=== PATIENT | female | born 1965 | race Caucasian/White ===

== ENCOUNTER → 2016-07-26 | Outpatient (CLI) | payer BC, OTHER ==
--- NOTE | 2016-07-26 12:47 | REP ---
Clinical: Pain. Technique: Internal rotation, external rotation, and Y view of the right shoulder. Findings: Cortical irregularities and small periarticular calcification involving the acromioclavicular joint is appreciated. The humeral head appears normal. The glenoid rim demonstrates subtle increased sclerosis and subchondral cystic changes. There is no evidence for acute fracture or dislocation. 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 Signed by Marty Mckoy MD 07/26/2016 12:39 P
== END ==
LOC: M WUC 12:25
PROVIDERS: ATTEND Family Medicine
DX: M19.011 Primary osteoarthritis, right shoulder (principal)

== ENCOUNTER 2017-01-03 21:41 | Emergency (ER) | payer BC, OTHER ==
[~2017-01-03] VITALS: Ht 172.7 cm; Wt 112.3 kg
[2017-01-03] MEDS ORDERED: ASPIRIN 81 MG CHEW TABLET PO ONE (22:30)
[2017-01-03 23:09] LABS: VENOUS O2 SATURATION 92.7 % (60.0-80.0); VENOUS PARTIAL PRESSURE O2 67.2 mmHg (30.0-50.0); VENOUS STANDARD HCO3 24.4 MEQ/L; VENOUS TOTAL CO2 27.2 MEQ/L (24.0-28.0)
[2017-01-03 23:18] LABS: BASO # 0.1 K/mm3 (0.0-0.2); BASO % 0.9 % (0.0-1.0); EOS # 0.3 K/mm3 (0.0-0.50); EOS % 3.5 % (0.0-3.0); LARGE UNSTAINED CELL # 0.2 K/mm3 (0.0-0.4); LARGE UNSTAINED CELL % 2.2 % (0.0-4.0); LYMPH % 46.4 % (24.0-44.0); MEAN CORPUSCULAR HEMOGLOBIN 29.7 pg (27.0-33.0); MEAN CORPUSCULAR HGB CONC 33.3 g/dl (32.0-36.5); MEAN CORPUSCULAR VOLUME 89.3 fl (80.0-96.0); MONO # 0.5 K/mm3 (0.0-0.8); MONO % 5.8 % (0.0-5.0); NEUTROPHILS # 3.4 K/mm3 (1.8-7.7); NEUTROPHILS % 41.2 % (36.0-66.0); PLATELET COUNT, AUTOMATED 290 k/mm3 (150-450); RED CELL DISTRIBUTION WIDTH 13.2 % (11.5-14.5); WHITE BLOOD COUNT 8.2 K/mm3 (4.0-10.0)
[2017-01-04 00:20] LABS: ALKALINE PHOSPHATASE 60 U/L (45-117); ALT/SGPT 38 U/L (12-78); ANION GAP 8 MEQ/L (8-16); AST/SGOT 16 U/L (15-37); BILIRUBIN,DIRECT < 0.1 MG/DL (0.0-0.2); BILIRUBIN,TOTAL 0.2 MG/DL (0.2-1.0); BLOOD UREA NITROGEN 18 MG/DL (7-18); CARBON DIOXIDE LEVEL 28 MEQ/L (21-32); CHLORIDE LEVEL 106 MEQ/L (98-107); GLOMERULAR FILTRATION RATE > 60.0 (>51); GLUCOSE, FASTING 99 MG/DL (70-105); SODIUM LEVEL 142 MEQ/L (136-145)
[2017-01-04 00:21] LABS: ALBUMIN 3.7 GM/DL (3.2-5.2); ALBUMIN/GLOBULIN RATIO 1.12 (1.00-1.93)
[2017-01-04 02:05] VITALS: BP 124/80
--- NOTE | 2017-01-04 05:57 | ECGEPIP ---
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
--- NOTE | 2017-01-04 11:12 | REP ---
Clinical: Chest pain . Comparison: 04/13/2016 . Technique: PA and lateral. Findings: The mediastinum and cardiac silhouette are normal. The lung fatima are clear and without acute consolidation, effusion, or pneumothorax. The skeletal structures are intact and normal. Impression: 1. No acute cardiopulmonary process. Signed by Marty Mckoy MD 01/04/2017 07:29 A
== END 2017-01-04 02:06 | disposition home or self-care (01) ==
LOC: M ED 21:41
DX: R07.89 Other chest pain (principal); R00.0 Tachycardia, unspecified

== ENCOUNTER → 2017-02-15 | Outpatient (CLI) | payer BC ==
--- NOTE | 2017-02-15 08:59 | REPMRS ---
Patient History The patient states she had a clinical breast exam in 02/12 Patient is postmenopausal. No known family history of cancer. Took hormonal contraceptives for 4 years. Took estrogen for 2 months. Digital Woman Screen Mammo: February 15, 2017 - Exam #: [id number] Bilateral CC and MLO view(s) were taken. Technologist: Mila Mcgregor, Technologist Prior study comparison: February 10, 2016, digital woman screen mammo performed at [facility]. January 14, 2015, digital woman screen mammo performed at [facility] to [facility]. FINDINGS: There are scattered fibroglandular densities. There has been no change in the appearance of the mammogram from the prior studies. There is a mild amount of residual fibroglandular tissue which is fairly symmetric. There is no interval development of dominant mass, architectural distortion, or clustered microcalcification suggestive of malignancy. ASSESSMENT: BI-RADS/ACR category 1 mammogram. Negative. Recommendation Routine screening mammogram in 1 year (for women over age 40). This mammogram was interpreted with the aid of an FDA-approved computer-aided dectection system. Electronically Signed By: Kayode Shaw MD 02/15/17 0832
== END ==
LOC: M WHC 08:12
PROVIDERS: ATTEND Nurse Practitioner Women's Health
DX: Z12.31 Encounter for screening mammogram for malignant neoplasm of breast (principal)

== ENCOUNTER → 2017-03-29 | Outpatient (CLI) | payer OTHER, BC ==
[2017-03-29 13:15] LABS: ALBUMIN 3.8 GM/DL (3.2-5.2); ALBUMIN/GLOBULIN RATIO 1.15 (1.00-1.93); ALKALINE PHOSPHATASE 51 U/L (45-117); ALT/SGPT 40 U/L (12-78); ANION GAP 7 MEQ/L (8-16); AST/SGOT 20 U/L (7-37); BILIRUBIN,TOTAL 0.4 MG/DL (0.2-1.0); BLOOD UREA NITROGEN 13 MG/DL (7-18); CALCIUM LEVEL 9.2 MG/DL (8.5-10.1); CARBON DIOXIDE LEVEL 28 MEQ/L (21-32); CHLORIDE LEVEL 108 MEQ/L (98-107); CHOLESTEROL LEVEL 202 MG/DL (<200); CREATININE FOR GFR 0.71 MG/DL (0.55-1.02); GLOMERULAR FILTRATION RATE > 60.0 (>51); GLUCOSE, FASTING 93 MG/DL (70-105); POTASSIUM SERUM 4.5 MEQ/L (3.5-5.1); SODIUM LEVEL 143 MEQ/L (136-145); TOTAL PROTEIN 7.1 GM/DL (6.4-8.2); TRIGLYCERIDES LEVEL 159 MG/DL (<150)
== END ==
LOC: M WUC 10:10
PROVIDERS: ATTEND Family Medicine
DX: E66.01 Morbid (severe) obesity due to excess calories (principal)

== ENCOUNTER 2017-05-24 10:32 | Day surgery (SDC) | payer BC, OTHER ==
[2017-05-24] MEDS: NS 1,000 ML IV (11:30)
[2017-05-24] MEDS ORDERED: LIDOCAINE 2% INJ 100 MG/5 ML SDV (FOR ANES.) As Ordered (12:29)
[2017-05-24] MEDS ORDERED: PROPOFOL 200 MG/20 ML VIAL As Ordered ×2 (12:29→12:40)
== END 2017-05-24 13:21 | disposition home or self-care (01) ==
LOC: M OPP 10:32
DX: Z12.11 Encounter for screening for malignant neoplasm of colon (principal); D12.3 Benign neoplasm of transverse colon; G47.33 Obstructive sleep apnea (adult) (pediatric); M12.9 Arthropathy, unspecified; Z86.79 Personal history of other diseases of the circulatory system; Z99.89 Dependence on other enabling machines and devices; Z91.89 Other specified personal risk factors, not elsewhere classified; Z90.710 Acquired absence of both cervix and uterus; Z85.51 Personal history of malignant neoplasm of bladder
CPT/HCPCS: 45385

== ENCOUNTER → 2018-04-11 | Outpatient (CLI) | payer BC | LOC: M WHC 14:43 | DX: Z12.31 Encounter for screening mammogram for malignant neoplasm of breast (principal); Z92.0 Personal history of contraception; Z92.23 Personal history of estrogen therapy | CPT/HCPCS: 77067 ==

== ENCOUNTER → 2019-04-07 | Outpatient (REF) | payer OTHER ==
[~2019-04-07] MED LIST: FIBE1CHW3 PO; OSTETAB4 PO
[2019-04-07 13:40] LABS: ALT/SGPT 35 U/L (12-78); BILIRUBIN,TOTAL 0.6 MG/DL (0.2-1.0); BLOOD UREA NITROGEN 19 MG/DL (7-18); CALCIUM LEVEL 9.3 MG/DL (8.5-10.1); CARBON DIOXIDE LEVEL 30 MEQ/L (21-32); CHLORIDE LEVEL 106 MEQ/L (98-107); CHOLESTEROL LEVEL 250 MG/DL (<200); CHOLESTEROL RISK RATIO 3.048 (<5); CREATININE FOR GFR 0.67 MG/DL (0.55-1.30); GLOMERULAR FILTRATION RATE > 60.0 (>51); GLUCOSE, FASTING 86 MG/DL (70-100); HDL CHOLESTEROL 82 MG/DL (>40); LDL CHOLESTEROL 140 MG/DL (<100); NON-HDL-C 168 MG/DL; POTASSIUM SERUM 4.4 MEQ/L (3.5-5.1); SODIUM LEVEL 140 MEQ/L (136-145); TOTAL PROTEIN 7.2 GM/DL (6.4-8.2); TRIGLYCERIDES LEVEL 142 MG/DL (<150)
== END ==
LOC: M SFHCPLAZ 10:38
PROVIDERS: ATTEND Family Medicine
DX: Z13.220 Encounter for screening for lipoid disorders (principal); Z13.1 Encounter for screening for diabetes mellitus

== ENCOUNTER → 2019-04-14 | Outpatient (CLI) | payer BC ==
--- NOTE | 2019-04-14 12:11 | REPMRS ---
Patient History The patient states she had a clinical breast exam in March 2019.No known family history of cancer. Took hormonal contraceptives for 4 years. Took estrogen for 2 months. Patient has had a 5 pound weight loss since last mammogram. Digital Woman Screen Mammo: April 14, 2019 - Exam #: [id number] Bilateral CC and MLO view(s) were taken. Technologist: Chio Ramirez, Technologist Prior study comparison: April 11, 2018, bilateral digital woman screen mammo performed at [facility]. February 15, 2017, digital woman screen mammo performed at [facility]. February 10, 2016, digital woman screen mammo performed at [facility]. FINDINGS: There are scattered fibroglandular densities. There has been no change in the appearance of the mammogram from the prior studies. There is a mild amount of scattered fibroglandular density which is fairly symmetric. There is no interval development of dominant mass, architectural distortion, or grouped microcalcification suggestive of malignancy. 3-D tomosynthesis shows no additional findings. Assessment: BI-RADS/ACR category 1 mammogram. Negative Mammogram. Recommendation Routine screening mammogram of both breasts in 1 year (for women over age 40). This patient's Lifetime Breast Cancer Risk is estimated at 8.2 %. This mammogram was interpreted with the aid of an FDA-approved computer-aided dectection system. Electronically Signed By: Mike Camp MD 04/14/19 1141
== END ==
LOC: M WHC 09:28
PROVIDERS: ATTEND Nurse Practitioner Women's Health
DX: Z12.31 Encounter for screening mammogram for malignant neoplasm of breast (principal)

== ENCOUNTER 2019-05-21 12:09 | Inpatient (IN) | payer BC, OTHER ==
[~2019-05-21] VITALS: Ht 175.3 cm; Wt 108.8 kg
[2019-05-21 12:45] LABS: BASO # 0.1 10^3/uL (0.0-0.2); BASO % 0.5 % (0.0-1.0); EOS # 0.2 10^3/uL (0.0-0.5); EOS % 2.2 % (0.0-3.0); HEMOGLOBIN 15.8 g/dl (12.0-15.5); LYMPH % 42.9 % (24.0-44.0); MEAN CORPUSCULAR HEMOGLOBIN 29.3 pg (27.0-33.0); MEAN CORPUSCULAR HGB CONC 32.2 g/dl (32.0-36.5); MEAN CORPUSCULAR VOLUME 90.9 fl (80.0-96.0); MONO # 0.7 10^3/uL (0.0-0.8); MONO % 7.6 % (0.0-5.0); NEUTROPHILS # 4.4 10^3/uL (1.5-8.5); NEUTROPHILS % 46.4 % (36.0-66.0); PLATELET COUNT, AUTOMATED 315 10^3/uL (150-450); RED BLOOD COUNT 5.39 10^6/uL (4.00-5.40); WHITE BLOOD COUNT 9.4 10^3/uL (4.0-10.0)
[2019-05-21] MEDS ORDERED: ASPIRIN 81 MG CHEW TABLET PO ONE (12:45)
[2019-05-21] MEDS: METOPROLOL 5 MG/5 ML VIAL IV SCH ×3 (12:53→13:58)
[2019-05-21 13:15] LABS: BLOOD UREA NITROGEN 16 MG/DL (7-18); CALCIUM LEVEL 9.7 MG/DL (8.5-10.1); CARBON DIOXIDE LEVEL 26 MEQ/L (21-32); CHLORIDE LEVEL 104 MEQ/L (98-107); CK-MB VALUE MASS 3.3 NG/ML (<3.6); CPK CREATINE PHOSPHOKINASE 251 U/L (26-192); CREATININE FOR GFR 0.79 MG/DL (0.55-1.30); GLOMERULAR FILTRATION RATE > 60.0 (>51); GLUCOSE, FASTING 91 MG/DL (70-100); MB/CK RELATIVE INDEX 1.31 (< OR =4); POTASSIUM SERUM 4.6 MEQ/L (3.5-5.1); SODIUM LEVEL 139 MEQ/L (136-145); TROPONIN I < 0.02 NG/ML (< 0.10)
--- NOTE | 2019-05-21 13:51 | REP ---
Portable chest x-ray: Single view. History: Chest pain. Comparison study: January 03, 2017. Findings: Monitoring electrodes overlie the chest. The right hemidiaphragm is elevated. Heart is not enlarged. Pulmonary vasculature is not increased. Pleural angles are sharp. No bony abnormality is seen. Impression: Right hemidiaphragm is somewhat elevated as before. No acute disease. Electronically Signed by James Camp MD 05/21/2019 01:42 P
[2019-05-21 13:58] LABS: INR 0.94; PROTHROMBIN TIME 12.2 SECONDS (11.8-14.0)
[2019-05-21 13:59] LABS: PARTIAL THROMBOPLASTIN TIME 27.1 SECONDS (25.0-38.4)
[2019-05-21 14:02] LABS: ALBUMIN 4.3 GM/DL (3.2-5.2); ALT/SGPT 34 U/L (12-78); BILIRUBIN,DIRECT 0.1 MG/DL (0.0-0.2); BILIRUBIN,TOTAL 0.4 MG/DL (0.2-1.0); MAGNESIUM LEVEL 2.4 MG/DL (1.8-2.4); TOTAL PROTEIN 7.8 GM/DL (6.4-8.2)
[2019-05-21] MEDS ORDERED: ISOVUE-370 76% 100ML VIAL (Q9967) As Ordered ONE (14:05)
--- NOTE | 2019-05-21 14:57 | REP ---
CT of the chest with IV contrast, pulmonary artery CT angiography: There are no comparison studies. There are no emboli in the pulmonary trunk or central pulmonary arteries. There are no emboli in the pulmonary lobe or segment branches. There are no infiltrates or pleural effusions. There is dependent atelectasis. There are no nodules or masses. There is no mediastinal, hilar or axillary adenopathy. The thoracic aorta is unremarkable. Cardiac size is normal. There is no pericardial effusion. The visualized upper abdominal contents are unremarkable. Impression: There are no pulmonary emboli. Otherwise, negative CT study of the chest. Electronically Signed by Kayode Felipe MD 05/21/2019 02:48 P
[2019-05-21] MEDS ORDERED: DIGOXIN INJ 0.5 MG/2 ML AMP (J1160) IV STA (15:35)
[2019-05-21] MEDS ORDERED: NS 500 ML IV ONE (15:45)
[2019-05-21 16:05] LABS: CK-MB VALUE MASS 3.1 NG/ML (<3.6); CPK CREATINE PHOSPHOKINASE 222 U/L (26-192); TROPONIN I < 0.02 NG/ML (< 0.10)
[2019-05-21] MEDS ORDERED: [UNRECOGNIZED DRUG - OTHER] PO (16:08)
[2019-05-21] MEDS ORDERED: OSTETAB2 PO (16:08)
[2019-05-21] MEDS ORDERED: AMIODARONE HCL 150 MG in IV 1 EA IV STA (16:38)
[2019-05-21] MEDS ORDERED: ACETAMINOPHEN 325 MG TAB PO ONE (19:00)
--- NOTE | 2019-05-21 19:23 | HPEPDOC ---
General Date of Admission May 21, 2019 at 16:56 Date of Service: May 21, 2019 Chief Complaint The patient is a 53-year-old female admitted with a reason for visit of Atrial Fibrillation With Rvr. Source: Patient, RN/MD History of Present Illness 53 year old female with PMH of JOANIE on CPAP, SVT, Obesity 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 SHe felt herself falling then as sson as she hit her head she woke up on the floor. She reports that she would feel episodes of palpitation but then it would resolve spontaneously. No history of syncopal episode inteh past, no chest pain or cough. In the ED she was in Afib with RVR with rate of 150s. In view of her syncopal episode she had a CT angio of the chest which was negative for PE. pateint recievd 3 doses of IV metoprolol and 1 dose of IV digoxin without any control of the heart rate. Dr Claire was consulted and he reccomendaed 150 mg of amiodarone which was given. Hospitalist was consuted for admission. Home Medications Scheduled Glucosam/Clarence-Msm1/C/Saul/Bosw (Osteo Bi-Flex Caplet) 1 Each Tablet, 2 TAB PO DAILY, (Reported) [Plexus Bio Clense] , 2 CAP PO DAILY, (Reported) Allergies Coded Allergies: No Known Allergies (Unverified , 05/21/19) Past Medical History Medical History JOANIE on CPAP, SVT, Obesity Surgical History total hystrectomy Family History Significant Family History: Cancer (father), Heart disease (brother) Social History * Smoker: non-smoker Alcohol: rarely Drugs: denies A-FIB/CHADSVASC A-FIB History Current/History of A-Fib/PAF?: Yes Current PO Anticoag Therapy: No Review of Systems Constitutional: Reports: Other (passed out); Denies: Chills, Fever, Night Sweats Eyes: Denies: Pain, Vision change ENT: Denies: Head Aches, Ear Pain, Dysphagia Skin: Denies: Rash, Lesions, Breakdown Pulmonary: Denies: Dyspnea, Cough Cardiovascular: Reports: Palpitations, Lt Headedness Gastrointestinal: Denies: Nausea, Vomiting, Abdominal Pain, Diarrhea Genitourinary: Denies: Dysuria, Frequency, Incontinence, Retention Hematologic: Denies: Bruising, Bleeding Excessively Musculoskeletal: Denies: Neck Pain, Back Pain, Joint Pain, Muscle Pain, Spasms Neurological: Denies: Weakness, Numbness, Change in speech, Confusion Physical Examination General Exam: Positive: Alert, Cooperative, No Acute Distress Eye Exam: Positive: PERRLA, Conjunctiva & lids normal, EOMI; Negative: Sclera icteric ENT Exam: Positive: Atraumatic, Mucous membr. moist/pink, Pharynx Normal Neck Exam: Positive: Supple; Negative: JVD, thyromegaly Chest Exam: Positive: Clear to auscultation, Normal air movement Heart Exam: Positive: Tachycardic, Irregular Rhythm, Normal S1, Normal S2; Negative: Gallops, Murmurs, Rubs Telemetry: Positive: Atrial fibrillation Abdomen Exam: Positive: Normal bowel sounds, Soft; Negative: Tenderness, Hepatospenomegaly Extremity Exam: Positive: Normal pulses; Negative: Clubbing, Cyanosis, Edema Skin Exam: Positive: Nl turgor and temperature; Negative: Breakdown, Lesion Neuro Exam: Positive: Normal Gait, Normal Speech, Cranial Nerves 3-12 NL, Reflexes 2+ Vital Signs Vital Signs Date Time Temp Pulse Resp B/P (MAP) Pulse Ox O2 Delivery O2 Flow Rate FiO2 05/21/19 17:16 145 18 109/72 (84) 92 Room Air 05/21/19 12:09 97.4 Laboratory Data Labs 24H Laboratory Tests 2 05/21/19 12:26: Immature Granulocyte % (Auto) 0.4, Neutrophils (%) (Auto) 46.4, Lymphocytes (%) (Auto) 42.9, Monocytes (%) (Auto) 7.6H, Eosinophils (%) (Auto) 2.2, Basophils (%) (Auto) 0.5, Neutrophils # (Auto) 4.4, Lymphocytes # (Auto) 4.0, Monocytes # (Auto) 0.7, Eosinophils # (Auto) 0.2, Basophils # (Auto) 0.1, Nucleated Red Bl ood Cells % (auto) 0.0, Prothrombin Time 12.2, Prothromb Time International Ratio 0.94, Activated Partial Thromboplast Time 27.1, Anion Gap 9, Glomerular Filtration Rate > 60.0, Calcium Level 9.7, Magnesium Level 2.4, Total Bilirubin 0.4, Direct Bilirubin 0.1, Aspartate Amino Transf (AST/SGOT) 27, Alanine Aminotransferase (ALT/SGPT) 34, Alkaline Phosphatase 57, Total Creatine Kinase 251H, Creatine Kinase MB 3.3, Creatine Kinase MB Relative Index 1.31, Troponin I < 0.02, Total Protein 7.8, Albumin 4.3, Albumin/Globulin Ratio 1.23, Thyroid Stimulating Hormone (TSH) 1.670 05/21/19 12:42: POC Glucose (Misc Panel) 97, POC Sodium (Misc Panel) 140, POC Potassium (Misc Panel) 4.3, POC Chloride (Misc Panel) 102, POC Total CO2 (Misc Panel) 29.0H, POC Blood Urea Nitrogen (Misc Panel 17, POC Ionized Calcium (Misc Panel) 4.8, POC Creatinine (Misc Panel) 0.8, POC Hematocrit (Misc Panel) 47.0 05/21/19 15:27: Total Creatine Kinase 222H, Creatine Kinase MB 3.1, Creatine Kinase MB Relative Index 1.40, Troponin I < 0.02 CBC/BMP Laboratory Tests 05/21/19 12:26 Assessment/Plan 53 year old female with PMH of JOANIE on CPAP, SVT, Obesity 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 SHe felt herself falling then as sson as she hit her head she woke up on the floor. She reports that she would feel episodes of palpitation but then it would resolve spontaneously. No history of syncopal episode inteh past, no chest pain or cough. In the ED she was in Afib with RVR with rate of 150s. In view of her syncopal episode she had a CT angio of the chest which was negative for PE. pateint recievd 3 doses of IV metoprolol and 1 dose of IV digoxin without any control of the heart rate. Dr Claire was consulted and he reccomendaed 150 mg of amiodarone which was given. Hospitalist was consulted for admission. Afib with rvr new onset with syncopal episode. will give another dose of dizoxin at 8pm if heart rate remains uncontrolled after the amiodarone. will also start her on low dose metoprolol if BP permits. will need anticoagulation. consulted Dr Claire. Syncope possibly due to Afib with rvr will get echo. telemetry JOANIE may use own CPAP. Plan / VTE VTE Prophylaxis Ordered?: Yes BÁRBARA RENTERIA MD May 21, 2019 17:35
[2019-05-21 20:00] VITALS: BP 128/74
[2019-05-21] MEDS ORDERED: DIGOXIN INJ 0.5 MG/2 ML AMP (J1160) IV ONE (20:00)
--- NOTE | 2019-05-21 20:48 | REPVR ---
PROCEDURE INFORMATION: Exam: CT Head Without Contrast Exam date and time: 05/21/2019 7:15 PM Age: 53 years old Clinical indication: Injury or trauma; Fall; Initial encounter; Blunt trauma (contusions or hematomas) TECHNIQUE: Imaging protocol: Computed tomography of the head without contrast. Radiation optimization: All CT scans at this facility use at least one of these dose optimization techniques: automated exposure control; mA and/or kV adjustment per patient size (includes targeted exams where dose is matched to clinical indication); or iterative reconstruction. COMPARISON: No relevant prior studies available. FINDINGS: Brain: Normal. No hemorrhage. Unremarkable white matter. No mass effect. Ventricles: Normal. No ventriculomegaly. Bones/joints: Unremarkable. No acute fracture. Sinuses: Visualized sinuses are unremarkable. No fluid levels. Mastoid air cells: Visualized mastoid air cells are well aerated. Soft tissues: Unremarkable. IMPRESSION: No acute intracranial abnormality. Electronically signed by: Juan Person On 05/21/2019 20:48:39 PM
[2019-05-21 21:21] VITALS: BP 128/74
[2019-05-21] MEDS: METOPROLOL TART 12.5 MG PER 1/2 TAB PO SCH (21:34)
[2019-05-21] MEDS ORDERED: METOPROLOL TART 25 MG TABLET PO ONE (22:30)
[2019-05-22] VITALS: BP 113/65
[2019-05-22 04:00] VITALS: BP 127/83
[2019-05-22 05:32] LABS: BASO # 0.1 10^3/uL (0.0-0.2); BASO % 0.7 % (0.0-1.0); EOS # 0.3 10^3/uL (0.0-0.5); EOS % 3.1 % (0.0-3.0); HEMATOCRIT 44.4 % (36.0-47.0); HEMOGLOBIN 14.4 g/dl (12.0-15.5); LYMPH # 3.5 10^3/uL (1.5-5.0); LYMPH % 42.9 % (24.0-44.0); MEAN CORPUSCULAR HEMOGLOBIN 29.6 pg (27.0-33.0); MEAN CORPUSCULAR HGB CONC 32.4 g/dl (32.0-36.5); MEAN CORPUSCULAR VOLUME 91.2 fl (80.0-96.0); MONO # 0.6 10^3/uL (0.0-0.8); MONO % 6.8 % (0.0-5.0); NEUTROPHILS # 3.7 10^3/uL (1.5-8.5); NEUTROPHILS % 46.1 % (36.0-66.0); PLATELET COUNT, AUTOMATED 288 10^3/uL (150-450); RED BLOOD COUNT 4.87 10^6/uL (4.00-5.40); WHITE BLOOD COUNT 8.1 10^3/uL (4.0-10.0)
[2019-05-22 05:50] LABS: BLOOD UREA NITROGEN 16 MG/DL (7-18); CALCIUM LEVEL 8.5 MG/DL (8.5-10.1); CARBON DIOXIDE LEVEL 31 MEQ/L (21-32); CHLORIDE LEVEL 108 MEQ/L (98-107); CREATININE FOR GFR 0.81 MG/DL (0.55-1.30); GLOMERULAR FILTRATION RATE > 60.0 (>51); GLUCOSE, FASTING 87 MG/DL (70-100); POTASSIUM SERUM 4.1 MEQ/L (3.5-5.1); SODIUM LEVEL 143 MEQ/L (136-145)
[2019-05-22] MEDS: ENOXAPARIN 40 MG/0.4 ML SYRINGE (J1650) SC SCH (09:12)
[2019-05-22] MEDS: METOPROLOL TART 12.5 MG PER 1/2 TAB PO SCH ×2 (09:12→22:11)
[2019-05-22] MEDS ORDERED: SLF 3 ML SYR IV PRN (10:45)
--- NOTE | 2019-05-22 11:38 | IPNPDOC ---
Subjective Date Seen The patient was seen on 05/22/19. Subjective Chief Complaint/HPI No complaints today. Feels well. Objective Physical Examination General Exam: Positive: Alert, Cooperative, No Acute Distress Eye Exam: Positive: PERRLA, Conjunctiva & lids normal, EOMI ENT Exam: Positive: Atraumatic, Mucous membr. 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 SHe felt herself falling then as sson as she hit her head she woke up on the floor. She reports that she would feel episodes of palpitation but then it would resolve spontaneously. No history of syncopal episode inteh past, no chest pain or cough. In the ED she was in Afib with RVR with rate of 150s. In view of her syncopal episode she had a CT angio of the chest which was negative for PE. pateint recievd 3 doses of IV meto prolol and 1 dose of IV digoxin without any control of the heart rate. Dr Claire was consulted and he reccomendaed 150 mg of amiodarone which was given. Hospitalist was consulted for admission. Afib with rvr new onset with syncopal episode. converted to sinus last night around 11 pm will need anticoagulation. consulted Dr Claire. Syncope possibly due to Afib with rvr will get echo. telemetry JOANIE may use own CPAP. Plan/VTE VTE Prophylaxis Ordered?: Yes VS, I&O, 24H, Fishbone Vital Signs/I&O Vital Signs Date Time Temp Pulse Resp B/P (MAP) Pulse Ox O2 Delivery O2 Flow Rate FiO2 05/22/19 04:00 97.1 63 18 127/83 (98) 94 NIPPV (BIPAP/CPAP) I&O- Last 24 Hours up to 6 AM 05/22/19 05:59 Intake Total 600 ml Output Total 200 ml Balance 400 ml Laboratory Data 24H LABS Laboratory Tests 2 05/21/19 12:26: Immature Granulocyte % (Auto) 0.4, Neutrophils (%) (Auto) 46.4, Lymphocytes (%) (Auto) 42.9, Monocytes (%) (Auto) 7.6H, Eosinophils (%) (Auto) 2.2, Basophils (%) (Auto) 0.5, Neutrophils # (Auto) 4.4, Lymphocytes # (Auto) 4.0, Monocytes # (Auto) 0.7, Eosinophils # (Auto) 0.2, Basophils # (Auto) 0.1, Nucleated Red Blood Cells % (auto) 0.0, Prothrombin Time 12.2, Prothromb Time International Ratio 0.94, Activated Partial Thromboplast Time 27.1, Anion Gap 9, Glomerular Filtration Rate > 60.0, Calcium Level 9.7, Magnesium Level 2.4, Total Bilirubin 0.4, Direct Bilirubin 0.1, Aspartate Amino Transf (AST/SGOT) 27, Alanine Aminotransferase (ALT/SGPT) 34, Alkaline Phosphatase 57, Total Creatine Kinase 251H, Creatine Kinase MB 3.3, Creatine Kinase MB Relative Index 1.31, Troponin I < 0.02, Total Protein 7.8, Albumin 4.3, Albumin/Globulin Ratio 1.23, Thyroid Stimulating Hormone (TSH) 1.670 05/21/19 12:42: POC Glucose (Misc Panel) 97, POC Sodium (Misc Panel) 140, POC Potassium (Misc Panel) 4.3, POC Chloride (Misc Panel) 102, POC Total CO2 (Misc Panel) 29.0H, POC Blood Urea Nitrogen (Misc Panel 17, POC Ionized Calcium (Misc Panel) 4.8, POC Creatinine (Misc Panel) 0.8, POC Hematocrit (Misc Panel) 47.0 05/21/19 15:27: Total Creatine Kinase 222H, Creatine Kinase MB 3.1, Creatine Kinase MB Relative Index 1.40, Troponin I < 0.02 05/22/19 05:05: Immature Granulocyte % (Auto) 0.4, Neutrophils (%) (Auto) 46.1, Lymphocytes (%) (Auto) 42.9, Monocytes (%) (Auto) 6.8H, Eosinophils (%) (Auto) 3.1H, Basophils (%) (Auto) 0.7, Neutrophils # (Auto) 3.7, Lymphocytes # (Auto) 3.5, Monocytes # (Auto) 0.6, Eosinophils # (Auto) 0.3, Basophils # (Auto) 0.1, Nucleated Red Blood Cells % (auto) 0.0, Anion Gap 4L, Glomerular Filtration Rate > 60.0, Calcium Level 8.5 CBC/BMP Laboratory Tests 05/21/19 12:26 05/22/19 05:05 BÁRBARA RENTERIA MD May 22, 2019 11:38
[2019-05-22] MEDS: SLF 3 ML SYR IV SCH ×2 (14:00→22:11)
[2019-05-22 20:00] VITALS: BP 133/76
--- NOTE | 2019-05-22 20:16 | ECGEPIP ---
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
--- NOTE | 2019-05-22 20:20 | ECGEPIP ---
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
[2019-05-22] MEDS: ASPIRIN ENTERIC 325 MG TAB PO SCH (22:10)
[2019-05-23] VITALS: BP 123/78
--- NOTE | 2019-05-23 00:18 | ECHO ---
DATE OF PROCEDURE: 05/22/2019 DATE OF : 1965 AGE: 53 REFERRING PHYSICIAN: Dr. Keyana Arzola PATIENT LOCATION: Room 3226 REASON FOR THE STUDY: Syncope, atrial fibrillation. 2D MEASUREMENTS: IVS: 1.1 cm LV: 5.0 cm LVPW: 1.1 cm LA: 4.0 cm Aorta: 3.6 cm IVC: 1.8 cm DOPPLER MEASUREMENTS: Peak velocity across the aortic valve: 1.1 meters per second Mitral E: 0.36, Mitral A: 0.55 with a ratio of 0.7 2D COMMENTS: 1. Normal left ventricular size, wall thickness, and normal global left ventricular systolic function. The estimated left ventricular systolic ejection fraction is 60-65%. 2. Borderline enlarged left atrium at 4.0 cm. Normal right atrium and right ventricle. 3. The atrial septum appeared to be normal without evidence of defect or shunt. 4. Normal aortic root. 5. Trace nonsignificant and probably physiologic pericardial effusion noted, no evidence of cardiac tamponade. 6. Aortic valve, mitral valve, tricuspid valve, and pulmonic valve appeared to be normal. The proximal pulmonary artery branches also appeared to be normal. 7. The inferior vena cava was normal in size, central venous pressure is most likely normal. DOPPLER: No significant valvular abnormalities detected but trace pulmonic regurgitation. Abnormal relaxation pattern was noted across the mitral valve leaflets as well as the mitral valve annulus consistent with features of grade 1 left ventricular diastolic dysfunction. IMPRESSION: 1. Normal global left ventricular systolic function. There are some features of grade 1 left ventricular diastolic dysfunction manifested by abnormal relaxation. 2. Trace pulmonic regurgitation. 3. Trace probably physiology pericardial effusion noted. No evidence of cardiac tamponade. 4. No findings in this transthoracic echocardiogram that would explain her syncopal episode.
[2019-05-23 04:00] VITALS: BP 122/79
[2019-05-23] MEDS: SLF 3 ML SYR IV SCH (04:57)
[2019-05-23 06:03] LABS: BASO # 0.1 10^3/uL (0.0-0.2); EOS # 0.3 10^3/uL (0.0-0.5); EOS % 3.6 % (0.0-3.0); HEMATOCRIT 43.8 % (36.0-47.0); HEMOGLOBIN 14.7 g/dl (12.0-15.5); LYMPH # 3.2 10^3/uL (1.5-5.0); LYMPH % 43.4 % (24.0-44.0); MEAN CORPUSCULAR HEMOGLOBIN 29.9 pg (27.0-33.0); MEAN CORPUSCULAR HGB CONC 33.6 g/dl (32.0-36.5); MEAN CORPUSCULAR VOLUME 89.2 fl (80.0-96.0); MONO # 0.5 10^3/uL (0.0-0.8); MONO % 7.4 % (0.0-5.0); NEUTROPHILS # 3.2 10^3/uL (1.5-8.5); NEUTROPHILS % 44.2 % (36.0-66.0); PLATELET COUNT, AUTOMATED 276 10^3/uL (150-450); RED BLOOD COUNT 4.91 10^6/uL (4.00-5.40); WHITE BLOOD COUNT 7.3 10^3/uL (4.0-10.0)
[2019-05-23 06:29] LABS: BLOOD UREA NITROGEN 14 MG/DL (7-18); CALCIUM LEVEL 8.9 MG/DL (8.5-10.1); CARBON DIOXIDE LEVEL 28 MEQ/L (21-32); CHLORIDE LEVEL 106 MEQ/L (98-107); CREATININE FOR GFR 0.74 MG/DL (0.55-1.30); GLOMERULAR FILTRATION RATE > 60.0 (>51); GLUCOSE, FASTING 85 MG/DL (70-100); POTASSIUM SERUM 3.8 MEQ/L (3.5-5.1); SODIUM LEVEL 139 MEQ/L (136-145)
[2019-05-23 08:00] VITALS: BP 142/81
--- NOTE | 2019-05-23 08:19 | CR ---
DATE OF CONSULTATION: 05/22/2019 REFERRING PHYSICIAN: Dr. Keyana Arzola REASON FOR CONSULTATION: Atrial fibrillation. HISTORY OF PRESENT ILLNESS: 53-year-old woman with a history of supraventricular tachycardia for which she has seen Dr. Delgado in [place], [place] years ago has been doing well with a history of obstructive sleep apnea for which she has been on continuous positive airway pressure (CPAP) until the day of hospitalization when she suddenly developed a rapid heart rate associated with dizziness and she passed out briefly. She was brought to the emergency room (ER) and was found to be in atrial fibrillation with rapid ventricular rate reported up to 150 beats per minute by EKG but on the monitor, at time, she was about of 170-180 beats per minute. She was treated in the ER with intravenous (IV) Lopressor/beta-gregory, IV digoxin. Case was discussed with the ER provider and IV amiodarone was recommended, then admission for observation. Cardiology consult was called. Mrs. Katie Burleson was admitted to progressive care unit (PCU) for observation and later during the day, she spontaneously cardioverted to a normal sinus rhythm and since then, she has been in normal sinus rhythm. Upon talking to her this evening, she stated that she has been doing well with very rare episodes of brief fluttering in her chest usually 2-4 times a month and has not been having an episode like that for many years ago when she was seen by Dr. Delgado. On the day of the admission, there was no associated chest pain or diaphoresis. There was no loss of sphincter control. She denies any chest pain with activities, shortness of breath, pedal edema, orthopnea, prior episode of syncope or near syncope. She has not been coughing. There was no fever or chills. She denies any thyroid disorders. There is no history of valvular heart disease, cardiomyopathy, sudden cardiac . There is no history of transient ischemic attack (TIA)/cerebrovascular accident (CVA), diabetes mellitus, kidney disease. There is no report of bleeding. There is no focal manifestation. She has a past medical history positive for supraclavicular tachycardia, obstructive sleep apnea for which she has been on CPAP, obesity. There is no history of hypertension, diabetes mellitus, thyroid disorders, kidney disease, significant valvular heart disease, cardiomyopathy, coronary artery disease, sudden cardiac . Her most recent labs done by her primary in the hospital revealed mildly elevated serum cholesterol. MEDICATIONS AT HOME: - glucosamine - Plexus CURRENT MEDICATIONS: - metoprolol tartrate 12.5 mg by mouth twice a day - Lovenox 40 mg subcu PAST SURGICAL HISTORY: Positive for total hysterectomy, otherwise unremarkable. FAMILY HISTORY: Positive for heart disease. She has a brother with valve repair/replacement and had also ablation for some irregular heart rhythm. SOCIAL HISTORY: Patient lives with her , and she does not smoke. She occasionally has a drink. There is no report of ethyl alcohol (EtOH) abuse. There is no report of illicit drugs. 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 ALLERGIES: NO KNOWN DRUG ALLERGIES. ADVANCE DIRECTIVES: Patient is a FULL CODE. PHYSICAL EXAMINATION: Patient is alert and oriented, in no acute distress, and her vital signs when I saw her earlier reveal a blood pressure of 133/76 with a pulse of 78, respiration 18 and her maximum temperature was 96.1 degrees Fahrenheit with an oxygen saturation of 92-94% on room air. Examination of the head: Atraumatic. Neck did not reveal any jugular venous distention (JVD) or carotid bruits. Lungs were clear bilaterally on auscultation without any wheezing or crackles. Heart examination revealed irregular heart sounds without gallops. The point of maximum impulse (PMI) is nondisplaced. There is no rub. I could not appreciate any murmurs. Abdomen is unremarkable. Extremities reveal no pedal edema. Peripheral pulses, dorsalis pedis are +1, equal. Neurological examination grossly was negative for focal deficit. Patient was able to move all her extremities while in bed. LABORATORY DATA: CBC revealed a WBC of 8.1, hemoglobin 14.4, hematocrit 44.4, and platelets 288,000. On admission, CBC on 05/21/2019 revealed a WBC of 9.4, hemoglobin 15.8, hematocrit 49.0, and platelets 315,000. BMP done today, 05/22/2019, revealed a sodium of 143, potassium 4.1, chloride 108, CO2 31, BUN 16, creatinine 0.81, GFR more than 60, fasting glucose 87, and calcium 8.5. Troponin was negative, less than 0.02. Serum TSH was 1.67. Liver enzymes on 05/21/2019 revealed a total bilirubin of 0.4, direct bilirubin of 0.1, AST 27, ALT 34, alkaline phosphatase 57, total protein 7.8, albumin 4.3. BMP on admission revealed a sodium of 139, potassium 4.6, chloride 104, CO2 27, BUN 16, creatinine 0.79, GFR more than 60, fasting glucose 91, and calcium 9.7. Magnesium was 2.4. PT on admission was 12.2 with an INR of 0.94 and PTT of 27.1. First electrocardiogram in the hospital on admission 05/21/2019 revealed atrial fibrillation at 143 beats per minute, left axis deviation, left anterior block, IVCD, and nonspecific ST-T abnormalities. Second electrocardiogram done on the same day, 05/21/2019 at 15:25:27 revealed atrial fibrillation at 151 beats per minute, left axis deviation, left anterior block, IVCD, and nonspecific ST-T abnormalities. Chest x-ray on 05/21/2019 revealed elevation of the right hemidiaphragm, otherwise no acute disease process. No cardiomegaly. CT angiogram on 05/21/2019 revealed no evidence of pulmonary embolism, no filtrates or pleural effusions, or pulmonary nodules versus masses. No adenopathies. Cardiac size was normal. There was no pericardial effusion. There was dependent atelectasis. Head CT on 05/21/2019 revealed no acute intracranial abnormalities. IMPRESSION: 1. Atrial fibrillation, newly diagnosed and associated with syncope. Heart rate in the hospital was 150 beats per minute by EKG and reported to be about 170-180 beats per minute on telemetry in the ER. The patient does have a history of supraventricular tachycardia (SVT) many years ago. She had an echocardiogram that revealed normal global left ventricular systolic function, no significant valvular heart disease. Her serum thyroid-stimulating hormone (TSH) is normal. She denies any EtOH abuse. I am certain that she probably has an episode of supraventricular tachycardia associated with a heart rate that caused her to syncopize then switched to paroxysmal atrial fibrillation. Currently in normal sinus rhythm. I do not see any indication to start at this present time on chronic anticoagulation therapy and she was started on aspirin as mentioned above. She will continue with a small dose of the beta-gregory. She was told that she should be able to go home tomorrow and she will call the office on Saturday and will manage a stress test for her. The ultimate goal is to refer her to an plant attendant or assistant operator for further evaluation. 2. Syncope in the setting of paroxysmal atrial fibrillation and possible SVT. I am concerned about WPW and as mentioned above, the plan is to proceed with a treadmill test then with an electrophysiology (EP) evaluation. Her echocardiogram was essentially benign. 3. History of obstructive sleep apnea, on CPAP. 4. Mild hyperlipidemia: Total cholesterol level in March of 2019 was reported to be about 250. She will continue for now with low cholesterol diet. It was a pleasure to participate in the care of . Katie Burleson for her underlying cardiac condition. Once again, she may be discharged home tomorrow on the beta-gregory and the aspirin. She will call the office on Saturday for followup appointment. Please do not hesitate to call if any questions.
[2019-05-23] MEDS: ENOXAPARIN 40 MG/0.4 ML SYRINGE (J1650) SC SCH (08:26)
[2019-05-23 08:31] VITALS: BP 142/81
[2019-05-23] MEDS: METOPROLOL TART 12.5 MG PER 1/2 TAB PO SCH (08:31)
[2019-05-23] MEDS: ASPIRIN ENTERIC 325 MG TAB PO SCH (08:31)
[2019-05-23] MEDS ORDERED: ASPI-527 PO (09:41)
[2019-05-23] MEDS ORDERED: METO1TAB87 PO (09:41)
--- NOTE | 2019-05-24 10:58 | ECGEPIP ---
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
== END 2019-05-23 12:05 | disposition home or self-care (01) | DRG 201 ==
LOC: M ED 12:09 → M ED INP 16:56 → CANRESERV 18:05 → ENRESERV 18:05 → M PCU 21:20
PROVIDERS: ADMIT Internal Medicine Nephrology; ATTEND Internal Medicine Nephrology
DX: I48.91 Unspecified atrial fibrillation (principal); R55 Syncope and collapse; E66.9 Obesity, unspecified; G47.33 Obstructive sleep apnea (adult) (pediatric); Z79.899 Other long term (current) drug therapy; I47.1 Supraventricular tachycardia

== ENCOUNTER → 2020-04-26 | Outpatient (CLI) | payer BC, OTHER ==
[~2020-04-26] MED LIST changes: +ASPI-527 PO; +METO1TAB87 PO; +OSTETAB2 PO; +[UNRECOGNIZED DRUG - OTHER] PO
--- NOTE | 2020-04-26 16:09 | REPMRS ---
Patient History The patient states she had a clinical breast exam in March 2020.No known family history of cancer. Took hormonal contraceptives for 4 years. Took estrogen for 2 months. Digital Woman Screen Mammo: April 26, 2020 - Exam #: [id number] Bilateral CC and MLO view(s) were taken. Technologist: Chio Ramirez, Technologist Prior study comparison: April 14, 2019, bilateral digital woman screen mammo performed at [facility]. April 11, 2018, bilateral digital woman screen mammo performed at [facility]. February 15, 2017, digital woman screen mammo performed at [facility]. FINDINGS: There are scattered fibroglandular densities. The Volpara volumetric breast density category is:B. There has been no change in the appearance of the mammogram from the prior studies. There is a mild amount of scattered fibroglandular density which is fairly symmetric. There is no interval development of dominant mass, architectural distortion, or grouped microcalcification suggestive of malignancy. 3-D tomosynthesis shows no additional findings. Assessment: BI-RADS/ACR category 1 mammogram. Negative Mammogram. Recommendation Routine screening mammogram of both breasts in 1 year (for women over age 40). This patient's [facility] Lifetime Breast Cancer Risk is estimated at 8.1 %. This mammogram was interpreted with the aid of an FDA-approved computer-aided dectection system. Electronically Signed By: Mike Camp MD 04/26/20 [id number]
== END ==
LOC: M WHC 14:54
PROVIDERS: ATTEND Nurse Practitioner Women's Health
DX: Z12.31 Encounter for screening mammogram for malignant neoplasm of breast (principal)

== ENCOUNTER → 2020-09-22 | Outpatient (CLI) | payer BC, OTHER ==
--- NOTE | 2020-09-22 10:45 | REP ---
INDICATION: PAIN COMPARISON: None. TECHNIQUE: AP, lateral, bilateral oblique and sunrise views. FINDINGS: Minimal age-related changes are appreciated. No overt osteoarthritic findings by radiographic evaluation. No acute fracture or dislocation. No obvious effusion. IMPRESSION: Minimal age-related changes. <Electronically signed by Marty Mckoy > 09/22/20 1042
== END ==
LOC: M WUC 10:07
PROVIDERS: ATTEND Physician Assistant
DX: M25.562 Pain in left knee (principal)

== ENCOUNTER 2021-08-12 00:25 | Emergency (ER) | payer BC, OTHER ==
[~2021-08-12] VITALS: Ht 172.7 cm; Wt 111.1 kg
[2021-08-12 01:30] LABS: BASO # 0.1 10^3/uL (0.0-0.2); BASO % 0.9 % (0.0-1.0); EOS # 0.3 10^3/uL (0.0-0.5); EOS % 4.4 % (0.0-3.0); HEMATOCRIT 40.9 % (36.0-47.0); HEMOGLOBIN 13.7 g/dl (12.0-15.5); LYMPH # 3.5 10^3/uL (1.5-5.0); LYMPH % 46.1 % (24.0-44.0); MEAN CORPUSCULAR HEMOGLOBIN 30.1 pg (27.0-33.0); MEAN CORPUSCULAR HGB CONC 33.5 g/dl (32.0-36.5); MEAN CORPUSCULAR VOLUME 89.9 fl (80.0-96.0); MONO # 0.5 10^3/uL (0.0-0.8); MONO % 7.2 % (2.0-8.0); NEUTROPHILS # 3.1 10^3/uL (1.5-8.5); PLATELET COUNT, AUTOMATED 281 10^3/uL (150-450); RED BLOOD COUNT 4.55 10^6/uL (4.00-5.40); WHITE BLOOD COUNT 7.5 10^3/uL (4.0-10.0)
[2021-08-12 01:55] LABS: BLOOD UREA NITROGEN 16 MG/DL (7-18); CALCIUM LEVEL 8.7 MG/DL (8.5-10.1); CARBON DIOXIDE LEVEL 26 MEQ/L (21-32); CHLORIDE LEVEL 107 MEQ/L (98-107); GLOMERULAR FILTRATION RATE > 60.0 (>51); GLUCOSE, FASTING 143 MG/DL (70-100); POTASSIUM SERUM 3.7 MEQ/L (3.5-5.1); SODIUM LEVEL 141 MEQ/L (136-145)
[2021-08-12 02:01] LABS: CK-MB VALUE MASS 3.3 NG/ML (<3.6); MB/CK RELATIVE INDEX 1.07 (< OR =4)
[2021-08-12 02:59] LABS: CK-MB VALUE MASS 3.2 NG/ML (<3.6)
[2021-08-12 04:47] LABS: MB/CK RELATIVE INDEX 1.14 (< OR =4)
[2021-08-12 05:30] VITALS: BP 122/78
== END 2021-08-12 05:44 | disposition home or self-care (01) ==
LOC: M ED 00:25
DX: I48.91 Unspecified atrial fibrillation (principal); R74.8 Abnormal levels of other serum enzymes; M19.90 Unspecified osteoarthritis, unspecified site; G43.909 Migraine, unspecified, not intractable, without status migrainosus; Z87.891 Personal history of nicotine dependence; Z79.899 Other long term (current) drug therapy

== ENCOUNTER → 2022-07-10 | Outpatient (CLI) | payer BC, OTHER ==
[2022-07-10 14:09] LABS: BASO # 0.1 10^3/uL (0.0-0.2); BASO % 0.9 % (0.0-1.0); EOS # 0.3 10^3/uL (0.0-0.5); EOS % 3.8 % (0.0-3.0); HEMOGLOBIN 14.5 g/dl (12.0-15.5); LYMPH # 3.3 10^3/uL (1.5-5.0); LYMPH % 42.3 % (24.0-44.0); MEAN CORPUSCULAR HEMOGLOBIN 29.9 pg (27.0-33.0); MEAN CORPUSCULAR VOLUME 90.7 fl (80.0-96.0); MONO # 0.6 10^3/uL (0.0-0.8); MONO % 7.3 % (2.0-8.0); NEUTROPHILS # 3.5 10^3/uL (1.5-8.5); NEUTROPHILS % 45.2 % (36.0-66.0); PLATELET COUNT, AUTOMATED 297 10^3/uL (150-450); RED BLOOD COUNT 4.85 10^6/uL (4.00-5.40); WHITE BLOOD COUNT 7.8 10^3/uL (4.0-10.0)
[2022-07-10 14:40] LABS: ALBUMIN 3.9 G/DL (3.2-5.2); ALKALINE PHOSPHATASE 61 U/L (46-116); ALT/SGPT 35 U/L (7.0-40); AST/SGOT 25 U/L (<34); BILIRUBIN,TOTAL 0.5 MG/DL (0.3-1.2); BLOOD UREA NITROGEN 15 MG/DL (9-23); CALCIUM LEVEL 9.1 MG/DL (8.5-10.1); CARBON DIOXIDE LEVEL 28 MMOL/L (20-31); CHLORIDE LEVEL 107 MMOL/L (98-107); CHOLESTEROL LEVEL 215 MG/DL (<200); CREATININE FOR GFR 0.65 MG/DL (0.55-1.30); GLOMERULAR FILTRATION RATE > 60.0 (>51); GLUCOSE, FASTING 86 MG/DL (60-100); HDL CHOLESTEROL 49.9 MG/DL (>40); LDL CHOLESTEROL 115.3 MG/DL (<100); NON-HDL-C 165.1 MG/DL; POTASSIUM SERUM 4.6 MMOL/L (3.5-5.1); SODIUM LEVEL 140 MMOL/L (136-145); TRIGLYCERIDES LEVEL 249 MG/DL (<150)
[2022-07-10 14:42] LABS: RHEUMATOID FACTOR QUANT 6.4 IU/ML (<14); THYROID STIMULATING HORMONE 2.048 uIU/ML (0.55-4.78)
[2022-07-10 14:55] LABS: HEMOGLOBIN A1c 6.1 % (4.0-6.0)
[2022-07-10 15:22] LABS: ERYTHROCYTE SEDIMENTATION RATE 19 mm/hr (0-30)
== END ==
LOC: M PLALAB 10:17
PROVIDERS: ATTEND Physician Assistant
DX: I48.0 Paroxysmal atrial fibrillation (principal)

== ENCOUNTER → 2022-10-02 | Outpatient (CLI) | payer BC, OTHER ==
[2022-10-02 18:48] LABS: HEMOGLOBIN A1c 5.8 % (4.0-6.0)
[2022-10-02 18:54] LABS: ALBUMIN 3.9 G/DL (3.2-5.2); ALKALINE PHOSPHATASE 62 U/L (46-116); ALT/SGPT 33 U/L (7.0-40); AST/SGOT 18 U/L (<34); BILIRUBIN,TOTAL 0.4 MG/DL (0.3-1.2); BLOOD UREA NITROGEN 19 MG/DL (9-23); CALCIUM LEVEL 9.7 MG/DL (8.5-10.1); CARBON DIOXIDE LEVEL 29 MMOL/L (20-31); CHLORIDE LEVEL 105 MMOL/L (98-107); CREATININE FOR GFR 0.66 MG/DL (0.55-1.30); GLOMERULAR FILTRATION RATE > 60.0 (>51); GLUCOSE, FASTING 91 MG/DL (60-100); POTASSIUM SERUM 4.9 MMOL/L (3.5-5.1); SODIUM LEVEL 140 MMOL/L (136-145); TOTAL PROTEIN 6.8 G/DL (5.7-8.2)
== END ==
LOC: M WUC 11:13
PROVIDERS: ATTEND Physician Assistant
DX: R73.03 Prediabetes (principal)

== ENCOUNTER 2023-05-02 11:00 | Day surgery (SDC) | payer BC, OTHER ==
[~2023-05-02] VITALS: Ht 175.3 cm; Wt 110.5 kg
[~2023-05-02 11:00] MED LIST changes: +LIDOCAINE 2% 100MG/5ML SDV (FOR ANES.) As Ordered ONE; +METO25TA4 PO; +VITMTA PO; +fentaNYL 100 MCG/2 ML INJECTION As Ordered ONE; +propofoL 500 MG/50 ML VIAL As Ordered ONE
[2023-05-02] MEDS ORDERED: GLUCAGON INJ 1MG VIAL As Ordered ONE (11:12)
[2023-05-02] MEDS: NS 1,000 ML IV ONE (11:16)
[2023-05-02 12:04] VITALS: TEMP 98.4
[2023-05-02 12:24] VITALS: BP 134/85; O2SAT 94
== END 2023-05-02 12:36 | disposition home or self-care (01) ==
LOC: M OPP 11:00
PROVIDERS: ATTEND Internal Medicine Gastroenterology
DX: Z12.11 Encounter for screening for malignant neoplasm of colon (principal); Z86.010 Personal history of colon polyps; Z80.0 Family history of malignant neoplasm of digestive organs; I10 Essential (primary) hypertension; Z90.710 Acquired absence of both cervix and uterus; G47.30 Sleep apnea, unspecified; Z87.891 Personal history of nicotine dependence; Z79.82 Long term (current) use of aspirin; Z79.899 Other long term (current) drug therapy
CPT/HCPCS: 45378; 88305; J1610; J3010

== ENCOUNTER → 2023-07-22 | Outpatient (CLI) | payer BC, OTHER ==
[~2023-07-22] MED LIST changes: -LIDOCAINE 2% 100MG/5ML SDV (FOR ANES.) As Ordered ONE; -fentaNYL 100 MCG/2 ML INJECTION As Ordered ONE; -propofoL 500 MG/50 ML VIAL As Ordered ONE
[2023-07-22 11:13] LABS: BASO # 0.1 10^3/uL (0.0-0.2); BASO % 0.7 % (0.0-1.0); EOS # 0.3 10^3/uL (0.0-0.5); EOS % 4.8 % (0.0-3.0); HEMATOCRIT 44.1 % (36.0-47.0); HEMOGLOBIN 14.7 g/dl (12.0-15.5); LYMPH # 2.7 10^3/uL (1.5-5.0); LYMPH % 40.7 % (24.0-44.0); MEAN CORPUSCULAR HEMOGLOBIN 30.4 pg (27.0-33.0); MEAN CORPUSCULAR HGB CONC 33.3 g/dl (32.0-36.5); MEAN CORPUSCULAR VOLUME 91.1 fl (80.0-96.0); MONO # 0.6 10^3/uL (0.0-0.8); MONO % 8.7 % (2.0-8.0); NEUTROPHILS % 44.8 % (36.0-66.0); PLATELET COUNT, AUTOMATED 294 10^3/uL (150-450); RED BLOOD COUNT 4.84 10^6/uL (4.00-5.40); WHITE BLOOD COUNT 6.7 10^3/uL (4.0-10.0)
[2023-07-22 11:29] LABS: HEMOGLOBIN A1c 5.9 % (4.0-6.0)
[2023-07-22 11:41] LABS: ALBUMIN 3.6 G/DL (3.2-5.2); ALKALINE PHOSPHATASE 55 U/L (46-116); ALT/SGPT 32 U/L (7.0-40); AST/SGOT 19 U/L (<34); BILIRUBIN,TOTAL 0.5 MG/DL (0.3-1.2); BLOOD UREA NITROGEN 13 MG/DL (9-23); CARBON DIOXIDE LEVEL 28 MMOL/L (20-31); CHLORIDE LEVEL 108 MMOL/L (98-107); CHOLESTEROL LEVEL 159 MG/DL (<200); CHOLESTEROL RISK RATIO 4.12 (<5); GLOMERULAR FILTRATION RATE > 60.0 (>51); GLUCOSE, FASTING 87 MG/DL (60-100); HDL CHOLESTEROL 38.5 MG/DL (>40); LDL CHOLESTEROL 90.3 MG/DL (<100); NON-HDL-C 120.5 MG/DL; POTASSIUM SERUM 4.6 MMOL/L (3.5-5.1); SODIUM LEVEL 141 MMOL/L (136-145); TOTAL PROTEIN 6.6 G/DL (5.7-8.2); TRIGLYCERIDES LEVEL 151 MG/DL (<150)
[2023-07-22 11:42] LABS: THYROID STIMULATING HORMONE 1.764 uIU/ML (0.55-4.78)
[2023-07-22 11:43] LABS: FREE T4 1.17 NG/DL (0.89-1.76)
== END ==
LOC: M WUC 08:21
PROVIDERS: ATTEND Physician Assistant
DX: E66.9 Obesity, unspecified (principal); R73.03 Prediabetes; Z13.29 Encounter for screening for other suspected endocrine disorder; Z13.220 Encounter for screening for lipoid disorders; Z68.35 Body mass index [BMI] 35.0-35.9, adult

== ENCOUNTER → 2023-08-27 | Outpatient (CLI) | payer BC ==
[2023-08-27 11:34] LABS: BASO # 0.1 10^3/uL (0.0-0.2); EOS # 0.3 10^3/uL (0.0-0.5); EOS % 4.3 % (0.0-3.0); HEMOGLOBIN 14.5 g/dl (12.0-15.5); LYMPH # 2.8 10^3/uL (1.5-5.0); LYMPH % 39.5 % (24.0-44.0); MEAN CORPUSCULAR HEMOGLOBIN 29.6 pg (27.0-33.0); MEAN CORPUSCULAR VOLUME 89.8 fl (80.0-96.0); MONO # 0.6 10^3/uL (0.0-0.8); NEUTROPHILS # 3.3 10^3/uL (1.5-8.5); NEUTROPHILS % 46.9 % (36.0-66.0); PLATELET COUNT, AUTOMATED 286 10^3/uL (150-450)
[2023-08-27 11:41] LABS: ERYTHROCYTE SEDIMENTATION RATE 18 mm/hr (0-30)
[2023-08-27 12:03] LABS: URIC ACID 6.6 MG/DL (3.1-7.8)
[2023-08-27 12:06] LABS: C REACTIVE PROTEIN QUANTITATIV < 0.40 MG/DL (<1.0); RHEUMATOID FACTOR QUANT 7.2 IU/ML (<14)
[2023-08-27 12:08] LABS: ALBUMIN 3.8 G/DL (3.2-5.2); ALKALINE PHOSPHATASE 59 U/L (46-116); ALT/SGPT 32 U/L (7.0-40); AST/SGOT 23 U/L (<34); BILIRUBIN,TOTAL 0.6 MG/DL (0.3-1.2); BLOOD UREA NITROGEN 13 MG/DL (9-23); CALCIUM LEVEL 9.4 MG/DL (8.5-10.1); CARBON DIOXIDE LEVEL 28 MMOL/L (20-31); CHLORIDE LEVEL 105 MMOL/L (98-107); CREATININE FOR GFR 0.62 MG/DL (0.55-1.30); GLOMERULAR FILTRATION RATE > 60.0 (>51); GLUCOSE, FASTING 88 MG/DL (60-100); POTASSIUM SERUM 4.6 MMOL/L (3.5-5.1); SODIUM LEVEL 141 MMOL/L (136-145); TOTAL PROTEIN 6.7 G/DL (5.7-8.2)
== END ==
LOC: M PLALAB 08:09
PROVIDERS: ATTEND Physician Assistant
DX: M25.541 Pain in joints of right hand (principal); M25.542 Pain in joints of left hand; M19.071 Primary osteoarthritis, right ankle and foot; M19.072 Primary osteoarthritis, left ankle and foot

== ENCOUNTER 2023-10-08 08:09 | Day surgery (SDC) | payer BC ==
[~2023-10-08] VITALS: Ht 172.7 cm; Wt 106.0 kg
[~2023-10-08 08:09] MED LIST changes: +BAYE81TA7 PO; +HYDR-643 PO; +NS 1,000 ML IV ONE; +THERTAB52 PO
[2023-10-08] MEDS ORDERED: propofoL 500 MG/50 ML VIAL As Ordered ONE (08:43)
[2023-10-08 09:18] VITALS: BP 107/68; TEMP 97.7; O2SAT 97
== END 2023-10-08 09:25 | disposition home or self-care (01) ==
LOC: M OPP 08:09
PROVIDERS: ATTEND Internal Medicine Gastroenterology
DX: Z12.11 Encounter for screening for malignant neoplasm of colon (principal); Z86.010 Personal history of colon polyps; Z80.0 Family history of malignant neoplasm of digestive organs; K64.8 Other hemorrhoids; G47.30 Sleep apnea, unspecified; Z99.89 Dependence on other enabling machines and devices; I48.91 Unspecified atrial fibrillation; I10 Essential (primary) hypertension; Z79.82 Long term (current) use of aspirin; Z79.899 Other long term (current) drug therapy

== ENCOUNTER → 2023-10-18 | Outpatient (REF) | payer OTHER ==
[~2023-10-18] MED LIST changes: -NS 1,000 ML IV ONE
== END ==
LOC: M LAB REF 17:21
PROVIDERS: ATTEND Ophthalmology
DX: H02.822 Cysts of right lower eyelid (principal)

== ENCOUNTER → 2023-11-01 | Outpatient (CLI) | payer OTHER, BC ==
[2023-11-01 17:13] LABS: BASO % 0.8 % (0.0-1.0); EOS # 0.2 10^3/uL (0.0-0.5); EOS % 3.8 % (0.0-3.0); HEMOGLOBIN 14.6 g/dl (12.0-15.5); LYMPH # 1.9 10^3/uL (1.5-5.0); LYMPH % 35.3 % (24.0-44.0); MEAN CORPUSCULAR HEMOGLOBIN 29.7 pg (27.0-33.0); MEAN CORPUSCULAR HGB CONC 32.4 g/dl (32.0-36.5); MEAN CORPUSCULAR VOLUME 91.6 fl (80.0-96.0); MONO # 0.6 10^3/uL (0.0-0.8); MONO % 10.6 % (2.0-8.0); NEUTROPHILS # 2.6 10^3/uL (1.5-8.5); NEUTROPHILS % 49.1 % (36.0-66.0); PLATELET COUNT, AUTOMATED 258 10^3/uL (150-450); RED BLOOD COUNT 4.91 10^6/uL (4.00-5.40); WHITE BLOOD COUNT 5.3 10^3/uL (4.0-10.0)
[2023-11-01 17:35] LABS: ALBUMIN 3.7 G/DL (3.2-5.2); ALKALINE PHOSPHATASE 75 U/L (46-116); ALT/SGPT 44 U/L (7.0-40); AST/SGOT 30 U/L (<34); BILIRUBIN,TOTAL 0.6 MG/DL (0.3-1.2); BLOOD UREA NITROGEN 13 MG/DL (9-23); CALCIUM LEVEL 9.5 MG/DL (8.5-10.1); CARBON DIOXIDE LEVEL 28 MMOL/L (20-31); CHLORIDE LEVEL 106 MMOL/L (98-107); GLOMERULAR FILTRATION RATE > 60.0 (>51); GLUCOSE, FASTING 114 MG/DL (60-100); POTASSIUM SERUM 4.6 MMOL/L (3.5-5.1); SODIUM LEVEL 141 MMOL/L (136-145); TOTAL PROTEIN 7.1 G/DL (5.7-8.2)
== END ==
LOC: M PLALAB 14:24
PROVIDERS: ATTEND Nurse Practitioner Family
DX: L03.116 Cellulitis of left lower limb (principal)

== ENCOUNTER → 2024-08-24 | Outpatient (CLI) | payer BC ==
[2024-08-24 10:53] LABS: CHOLESTEROL RISK RATIO 4.02 (<5); HDL CHOLESTEROL 51.4 MG/DL (>40); LDL CHOLESTEROL 109.8 MG/DL (<100); NON-HDL-C 155.6 MG/DL
[2024-08-24 11:01] LABS: FREE T4 1.03 NG/DL (0.89-1.76); THYROID STIMULATING HORMONE 1.956 uIU/ML (0.55-4.78)
[2024-08-24 11:15] LABS: HEMOGLOBIN A1c 5.7 % (4.0-6.0)
== END ==
LOC: M PLALAB 07:35
PROVIDERS: ATTEND Nurse Practitioner Family
DX: Z13.1 Encounter for screening for diabetes mellitus (principal)